=== PATIENT | female | born 1955 | race Two or more races ===

== ENCOUNTER 2019-10-29 14:30 | Emergency (ER) | payer MEDICARE, MEDICAID ==
[~2019-10-29] VITALS: Ht 152.4 cm; Wt 72.0 kg
--- NOTE | 2019-10-29 15:39 | NUR ---
PATIENT ARRIVES WITH A UTI THAT WAS DIAGNOSED ONE WEEK AGO AND TOOK ALL HER ABX BUT CONTINUES TO HAVE URINARY PAIN AND URGENCY
[2019-10-29] MEDS ORDERED: MORPHINE SULFATE 4 MG/ML, 1ML IVPush PRN (16:30)
[2019-10-29] MEDS ORDERED: ONDANSETRON 2MG/ML, 2ML IVPush ONE (16:30)
[2019-10-29] MEDS ORDERED: SODIUM CHLORIDE FLUSH 10ML SYR IVF ONE (16:30)
[2019-10-29] MEDS ORDERED: MORPHINE SULFATE 4 MG/ML, 1ML ONE (16:36)
[2019-10-29] MEDS ORDERED: ONDANSETRON 2MG/ML, 2ML ONE (16:36)
[2019-10-29 16:37] LABS: MICROSCOPIC AUTO
[2019-10-29 16:38] LABS: CULTURE INDICATED? YES
[2019-10-29] MEDS ORDERED: CITA20TA9 PO (16:45)
[2019-10-29] MEDS ORDERED: FENO145T32 PO (16:45)
[2019-10-29] MEDS ORDERED: AMIT75TA PO (16:45)
[2019-10-29] MEDS ORDERED: PREG50CA PO (16:45)
[2019-10-29] MEDS ORDERED: TOPI25CA3 PO (16:45)
[2019-10-29] MEDS ORDERED: AMLO-302 PO (16:45)
[2019-10-29] MEDS ORDERED: ATOR40TA78 PO (16:45)
[2019-10-29] MEDS ORDERED: LEVO100T5 PO (16:45)
[2019-10-29] MEDS ORDERED: ASPI-496 PO (16:45)
--- NOTE | 2019-10-29 16:52 | NUR ---
patient being taken now to ct scan
[2019-10-29 16:57] LABS: BASOPHILS # (AUTO) 0.03 x10^3/uL (0-0.1); BASOPHILS % (AUTO) 0 % (0-1); EOSINOPHILS # (AUTO) 0.14 x10^3/uL (0-0.4); EOSINOPHILS % (AUTO) 2 % (1-7); LYMPHOCYTES # (AUTO) 1.43 x10^3/uL (1-3.4); LYMPHOCYTES % (AUTO) 21 % (22-44); MD NO; MEAN CORPUSCULAR HEMOGLOBIN 31.4 pg (27.0-34.8); MEAN CORPUSCULAR HGB CONC 33.9 g/dL (32.4-35.8); MEAN CORPUSCULAR VOLUME 92.4 fL (80-100); MEAN PLATELET VOLUME 8.9 fL (7.4-10.4); MONOCYTES # (AUTO) 0.53 x10^3/uL (0.2-0.8); MONOCYTES % (AUTO) 8 % (2-9); NEUTROPHILS # (AUTO) 4.73 x10^3/uL (1.8-6.8); NEUTROPHILS % (AUTO) 69 % (42-75); PLATELET COUNT 271 x10^3/uL (130-400); RED BLOOD COUNT 4.32 x10^6/uL (3.82-5.3); RED CELL DISTRIBUTION WIDTH 13.4 % (9.6-15.2)
[2019-10-29 17:10] LABS: ALBUMIN 4.1 g/dL (3.4-5.0); ANION GAP 6 mmol/L (5-15); CALCIUM 8.8 mg/dL (8.5-10.1); CHLORIDE 114 mmol/L (98-107)
[2019-10-29 17:13] LABS: ALANINE AMINOTRANSFERASE 43 U/L (12-78); ALKALINE PHOSPHATASE 130 U/L (45-117); BILIRUBIN,TOTAL 0.6 mg/dL (0.2-1.0); CREATININE 0.97 mg/dL (0.55-1.02); TOTAL PROTEIN 7.3 g/dL (6.4-8.2)
[2019-10-29] MEDS ORDERED: CEFTRIAXONE PMX 1GM/50ML 50 ML ONE (18:13)
[2019-10-29] MEDS ORDERED: MAALOX/HYOSCYAMINE/LIDOCAINE 45 ML BTL ONE (18:13)
[2019-10-29] MEDS ORDERED: FAMOTIDINE 20 MG/2 ML ONE (18:14)
[2019-10-29 18:18] VITALS: BP 128/78
--- NOTE | 2019-10-29 18:19 | NUR ---
GETTING iv ROCEPHEN THEN WILL DISCHARGE PATIENT. DC REVIEWED.
--- NOTE | 2019-10-29 18:23 | NUR ---
patient instructed no driving since she had morphine and instructed that patient needs to take full course of abx. shows understanding
[2019-10-29] MEDS ORDERED: MAALOX/HYOSCYAMINE/LIDOCAINE 45 ML BTL PO ONE (18:30)
[2019-10-29] MEDS ORDERED: FAMOTIDINE 20 MG/2 ML IVPush ONE (18:30)
[2019-10-29] MEDS ORDERED: CEFTRIAXONE PMX 1GM/50ML 50 ML IV ONE (18:30)
== END 2019-10-29 18:24 | disposition home or self-care (01) ==
LOC: ED 18:00
DX: N39.0 Urinary tract infection, site not specified (principal); K76.0 Fatty (change of) liver, not elsewhere classified
CPT/HCPCS: 36415; 74021; 76700; 80053; 81001; 83690; 85025; 87086; 96365; 96375; 99285; J0696; J2270; J2405; J3490; 87077; 87147; 87186